=== PATIENT | female | born 2000 | race African-American/Black ===

== ENCOUNTER 2023-06-18 13:03 | Inpatient (IN) | payer OTHER ==
[~2023-06-18] VITALS: Ht 167.6 cm; Wt 75.0 kg
[2023-06-18] MEDS ORDERED: BUPRENORPHINE HCL/NALOXONE HCL 8-2 MG SUBLINGUAL TABLET SL ONE (13:45)
[2023-06-18] MEDS ORDERED: MAGNESIUM HYDROXIDE SUSPENSION 30 ML UDCUP PO PRN (14:00)
[2023-06-18] MEDS ORDERED: LORazepam 2 MG/ML VIAL IVP PRN (14:00)
[2023-06-18] MEDS ORDERED: SODIUM CHLORIDE 0.9% 1,000 ML IV ONE (14:00)
[2023-06-18 14:04] LABS: COVID AG,FIA SOURCE NASOPHARYNGEAL
[2023-06-18 14:04] LABS: BASOPHILS % (AUTO) 0.4 % (0.0-2.0); EOSINOPHILS % (AUTO) 0 % (1.0-6.0); HEMATOCRIT 39.1 % (36-46); HEMOGLOBIN 12.7 g/dL (12.0-16.0); LYMPHOCYTES # (AUTO) 1.2 K/uL (1.0-4.8); LYMPHOCYTES % (AUTO) 20.7 % (22.0-44.0); MEAN CORPUSCULAR HGB CONC 32.5 G/dL (31.0-37.0); MEAN CORPUSCULAR VOLUME 80 fL (80-100); MONOCYTES # (AUTO) 0.5 K/uL (0.1-1.0); MONOCYTES % (AUTO) 7.9 % (2.0-9.0); NEUTROPHILS # (AUTO) 4.1 K/uL (1.8-7.7); PLATELET COUNT (AUTO) 407 K/uL (150-450); RED BLOOD CELL COUNT(AUTO) 4.89 MIL/uL (4.00-5.20); RED CELL DISTRIBUTION WIDTH 13.7 % (11.5-14.5)
[2023-06-18 14:18] LABS: ANION GAP 10 mmol/L (8-16); CALCIUM, TOTAL 9.3 mg/dL (8.8-10.5); CARBON DIOXIDE 25 mmol/L (22-29); CHLORIDE 104 mmol/L (98-107); GLOMERULAR FILTR. RATE CALC > 60 mL/min (>60); GLUCOSE,RANDOM 86 mg/dL (70-110); POTASSIUM 3.7 mmol/L (3.5-5.1); SODIUM SERUM 139 mmol/L (136-145)
[2023-06-18 14:24] LABS: ALANINE AMINOTRANSFERASE 15 U/L (12-78); ALBUMIN 4.7 g/dL (3.4-5.0); ALKALINE PHOSPHATASE 87 U/L (46-116); ASPARTATE AMINOTRANSFERASE 16 U/L (15-37); BILIRUBIN,TOTAL 0.8 mg/dL (0.1-1.0); TOTAL PROTEIN, SERUM 7.9 g/dL (6.4-8.2)
[2023-06-18] MEDS: ONDANSETRON HCL 4 MG/2 ML VIAL IVP PRN ×2 (14:26→19:59)
[2023-06-18 16:42] VITALS: BP 105/65; PULSE 63; RESP 18; TEMP 98.3
[2023-06-18 19:56] LABS: APPEARANCE,URINE CLEAR (CLEAR); BILIRUBIN,URINE NEGATIVE (NEGATIVE); GLUCOSE, URINE (UA) NEGATIVE (NEGATIVE); KETONES,URINE =>150 mg/dL (NEGATIVE); LEUKOCYTE ESTERASE ,URINE NEGATIVE (NEGATIVE); NITRATE,URINE NEGATIVE (NEGATIVE); OCCULT BLOOD,URINE LARGE (NEGATIVE); PROTEIN,URINE 100-200,SEE CONFIRM mg/dL (NEGATIVE); SPECIFIC GRAVITIY, URINE 1.039 (1.003-1.030)
[2023-06-18] MEDS: FAMOTIDINE 20 MG TABLET PO SCH (19:58)
[2023-06-18] MEDS: ACETAMINOPHEN 325 MG TABLET PO PRN (19:58)
[2023-06-18] MEDS: ZOLPIDEM TARTRATE 5 MG TABLET PO PRN (19:59)
[2023-06-18 20:00] VITALS: BP 118/63; PULSE 58; RESP 20; TEMP 98.7
[2023-06-18 20:02] LABS: AMPHET/METH SCREEN,URINE NEGATIVE (NEGATIVE); BARBITURATE SCREEN, URINE NEGATIVE (NEGATIVE); BENZODIAZEPINES SCREEN,URINE NEGATIVE (NEGATIVE); CANNABINOID SCREEN,URINE POSITIVE (NEGATIVE); COCAINE SCREEN,URINE NEGATIVE (NEGATIVE); METHADONE SCREEN, URINE NEGATIVE (NEGATIVE); OPIATE SCREEN,URINE NEGATIVE (NEGATIVE); PHENCYCLIDINE SCREEN,URINE NEGATIVE (NEGATIVE)
[2023-06-18 20:12] LABS: BACTERIA,URINE Few /HPF (None Seen); WBC,URINE 0-2 /HPF (0-5)
[2023-06-18 20:14] LABS: SULFOSALICYLIC ACID,URINE 1+ (Negative)
[2023-06-18 20:15] LABS: MUCUS,URINE Few LPF (None Seen); SQUAMOUS EPITHELIAL CELL,UR Moderate /LPF (None Seen)
[2023-06-19 05:05] VITALS: BP 117/54; PULSE 81; RESP 20; TEMP 98.7
[2023-06-19 08:00] VITALS: BP 116/53; PULSE 63; RESP 20; TEMP 99
[2023-06-19] MEDS ORDERED: SODIUM CHLORIDE 0.9% 1,000 ML IV ONE (08:30)
[2023-06-19] MEDS: FAMOTIDINE 20 MG TABLET PO SCH ×2 (10:15→20:28)
[2023-06-19 19:50] VITALS: BP 115/65; PULSE 62; RESP 20; TEMP 99.1
[2023-06-19] MEDS: ZOLPIDEM TARTRATE 5 MG TABLET PO PRN (20:28)
[2023-06-20 04:50] VITALS: BP 137/77; PULSE 70; RESP 20; TEMP 98.6
[2023-06-20 08:45] VITALS: BP 118/74; PULSE 66; RESP 18; TEMP 98.7
[2023-06-20] MEDS: FAMOTIDINE 20 MG TABLET PO SCH (08:50)
[2023-06-20] MEDS: ACETAMINOPHEN 325 MG TABLET PO PRN (08:51)
[2023-06-20] MEDS ORDERED: ACET-2247 PO (10:13)
[2023-06-20] MEDS ORDERED: MAGN-169 PO (10:13)
== END 2023-06-20 13:51 | DRG 897 ==
LOC: EMS 13:03 → 6S 14:20
PROVIDERS: ADMIT Internal Medicine; ATTEND Internal Medicine
DX: F11.13 Opioid abuse with withdrawal (principal); F19.10 Other psychoactive substance abuse, uncomplicated; Z20.822 Contact with and (suspected) exposure to COVID-19
CPT/HCPCS: 80053; 80307; 81001; 81002; 84703; 85025; 99285; G0480; J2060; J2405; J7030